=== PATIENT | female | born 1990 | race Caucasian/White ===

== ENCOUNTER 2016-10-25 01:53 | Emergency (ER) ==
[2016-10-25 02:03] VITALS: BP 126/081
[2016-10-25] MEDS ORDERED: XYLOCAINE 1%/EPI 1:100,000 INJ ONE (02:21)
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
[2016-10-25] MEDS ORDERED: NORCO-5 PO ONE (02:30)
[2016-10-25] MEDS ORDERED: MOTRIN PO ONE (02:30)
== END 2016-10-25 02:42 | disposition home or self-care (01) ==
LOC: P.ED 01:53
DX: S01.01XA Laceration without foreign body of scalp, initial encounter (principal); S90.111A Contusion of right great toe without damage to nail, initial encounter; M79.674 Pain in right toe(s); R51 Headache; M79.1 Myalgia; Y04.2XXA Assault by strike against or bumped into by another person, initial encounter
CPT/HCPCS: 99282

== ENCOUNTER 2016-10-27 17:30 | Emergency (ER) ==
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
[2016-10-27] MEDS ORDERED: ZOFRAN ODT PO ONE (19:00)
[2016-10-27] MEDS ORDERED: FIORICET PO ONE (20:21)
[2016-10-27 20:29] VITALS: BP 128/77
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
== END 2016-10-27 20:36 | disposition home or self-care (01) ==
LOC: P.ED 17:30
DX: S06.0X0A Concussion without loss of consciousness, initial encounter (principal); S01.01XD Laceration without foreign body of scalp, subsequent encounter; S00.03XA Contusion of scalp, initial encounter; R42 Dizziness and giddiness; R51 Headache; R11.2 Nausea with vomiting, unspecified; R19.7 Diarrhea, unspecified; J32.9 Chronic sinusitis, unspecified; F17.210 Nicotine dependence, cigarettes, uncomplicated; Z71.6 Tobacco abuse counseling; Y04.0XXA Assault by unarmed brawl or fight, initial encounter
CPT/HCPCS: 70450; 72125; 81025

== ENCOUNTER 2017-07-28 00:02 | Inpatient (IN) ==
[2017-07-28] MEDS ORDERED: PEPCID PO PRN (00:09)
[2017-07-28] MEDS ORDERED: TYLENOL PO PRN (00:09)
[2017-07-28] MEDS ORDERED: STADOL IV PRN (00:09)
[2017-07-28] MEDS ORDERED: PEPCID IV PRN (00:09)
[2017-07-28] MEDS ORDERED: KEFZOL 1 GM/D5W 1 GM/50 ML IVPB IV PRN (00:09)
[2017-07-28] MEDS ORDERED: ZOFRAN IV PRN (00:09)
[2017-07-28] MEDS ORDERED: SODIUM CHLORIDE 0.9% INJ SCH (00:15)
[2017-07-28] MEDS ORDERED: AMPICILLIN 2 GM/NS 2 GM/100 ML IVPB IV ONE (01:00)
[2017-07-28] MEDS: LR 1,000 ML IV SCH ×3 (01:03→09:00)
[2017-07-28 01:59] LABS: MANUAL DIFF NEEDED? NO
[2017-07-28 01:59] LABS: URINE SOURCE VOIDED
[2017-07-28 02:08] LABS: BASO% 0.2 % (0.0-0.8); EOS# 0.12 X1000 (0.0-0.7); EOS% 1.4 % (0.0-10.0); HEMATOCRIT 30.8 % (37.0-47.0); HEMOGLOBIN 10.5 g/dL (12.0-16.0); IMM GRAN# 0.03 X1000 (0.0-0.04); IMM GRAN% 0.3 % (0.0-0.5); LYMPH# 2.46 X1000 (1.2-3.4); LYMPH% 28.2 % (20.5-51.1); MCH 32.2 PG (27-31); MCHC 34.1 g/dL (33-37); MCV 94.5 FL (81-99); MPV 10.6 FL (7.4-10.4); NEUT% 61.9 % (42.2-75.2); PLT 172 X1000 (130-400); RBC 3.26 XMIL (4.2-5.4)
[2017-07-28 02:08] LABS: UR AMPHETAMINES QUAL NONE DETECTED (NONE DETECT); UR BARBITUATES QUAL NONE DETECTED (NONE DETECT); UR BENZODIAZEPIN QUAL NONE DETECTED (NONE DETECT); UR CANNABINOIDS QUAL NONE DETECTED (NONE DETECT); UR COCAINE QUAL NONE DETECTED (NONE DETECT); UR MDMA QUAL NONE DETECTED (NONE DETECT); UR METHADONE QUAL NONE DETECTED (NONE DETECT); UR METHAMPHETAMINE QUAL NONE DETECTED (NONE DETECT); UR OPIATES QUAL NONE DETECTED (NONE DETECT); UR OXYCODONE QUAL NONE DETECTED (NONE DETECT); UR PCP QUAL NONE DETECTED (NONE DETECT); UR TCA QUAL NONE DETECTED (NONE DETECT)
[2017-07-28 02:17] LABS: BILIRUBIN URINE NEGATIVE (NEGATIVE); BLOOD URINE 1+ (NEGATIVE); CLARITY CLEAR (CLEAR); COLOR YELLOW; GLUCOSE URINE NEGATIVE (NEGATIVE); LEUKOCYTES URINE 1+ (NEGATIVE); NITRITE URINE POSITIVE (NEGATIVE); PROTEIN URINE NEGATIVE (NEGATIVE); UROBILINOGEN URINE NORMAL
[2017-07-28] MEDS: AMPICILLIN 1 GM/NS 1 GM/50 ML IVPB IV SCH ×2 (05:16→09:42)
[2017-07-28] MEDS ORDERED: PITOCIN 30 UNITS/LR 30 UNITS/500 ML IV.SOLN IV SCH (06:00)
[2017-07-28] MEDS ORDERED: MINERAL OIL TOP PRN (06:39)
[2017-07-28] MEDS ORDERED: XYLOCAINE-MPF 1% INJ PRN ×2 (06:39→14:00)
[2017-07-28] MEDS ORDERED: FENTANYL-BUPIV-NS 2 MCG-0.1% 200 ML EPIDURAL PRN (07:05)
[2017-07-28] MEDS ORDERED: NAROPIN 0.2% INJ ONE (07:15)
[2017-07-28] MEDS ORDERED: NEO-SYNEPHRINE IV ONE (07:15)
[2017-07-28] MEDS ORDERED: FENTANYL IV ONE (07:15)
[2017-07-28] MEDS ORDERED: BENADRYL PO PRN (14:00)
[2017-07-28] MEDS ORDERED: HYDROXYZINE PO PRN (14:00)
[2017-07-28] MEDS ORDERED: AMBIEN PO PRN (14:00)
[2017-07-28] MEDS ORDERED: BOOSTRIX VACCINE IM ONE (14:00)
[2017-07-28] MEDS ORDERED: PITOCIN IM PRN (14:00)
[2017-07-28] MEDS ORDERED: PITOCIN 20 UNITS/LR 20 UNITS/1,000 ML IV.SOLN IV SCH (14:00)
[2017-07-28] MEDS ORDERED: MINERAL OIL PO PRN (14:00)
[2017-07-28] MEDS ORDERED: PERCOCET-5 PO PRN (14:00)
[2017-07-28] MEDS ORDERED: CYTOTEC PO PRN (14:00)
[2017-07-28] MEDS ORDERED: M-M-R II VACCINE SUBQ ONE (14:00)
[2017-07-28] MEDS ORDERED: PITOCIN 30 UNITS/LR 30 UNITS/500 ML IV.SOLN IV ONE (14:00)
[2017-07-28] MEDS ORDERED: NORCO-5 PO PRN (14:00)
[2017-07-28] MEDS ORDERED: BENADRYL IV PRN (14:00)
[2017-07-28] MEDS ORDERED: PERI MEDS (DERMOPLAST/NUPERCAINAL/TUCKS) MISC PRN (14:00)
[2017-07-28] MEDS ORDERED: HYDROXYZINE IM PRN (14:00)
[2017-07-28] MEDS: MOTRIN PO PRN ×2 (14:40→22:29)
[2017-07-28] MEDS: PERCOCET-10 PO PRN ×2 (17:45→22:29)
[2017-07-28] MEDS: PERICOLACE PO SCH (19:50)
[2017-07-29] MEDS: PERICOLACE PO SCH ×2 (01:09→20:36)
[2017-07-29] MEDS: NORCO-10 PO PRN ×2 (04:04→07:03)
[2017-07-29 06:16] LABS: HEMATOCRIT 29.6 % (37.0-47.0); HEMOGLOBIN 9.8 g/dL (12.0-16.0); MCH 31.5 PG (27-31); MCHC 33.1 g/dL (33-37); MCV 95.2 FL (81-99); MPV 11.2 FL (7.4-10.4); RBC 3.11 XMIL (4.2-5.4)
[2017-07-29] MEDS: MOTRIN PO PRN ×2 (07:03→20:36)
[2017-07-29] MEDS: PRECARE PO SCH (08:49)
[2017-07-29] MEDS: PERCOCET-10 PO PRN ×4 (09:20→21:57)
[2017-07-30] MEDS: MOTRIN PO PRN (07:00)
[2017-07-30 07:30] VITALS: BP 91/57
[2017-07-30] MEDS: NORCO-10 PO PRN (09:46)
[2017-07-30] MEDS: PRECARE PO SCH (09:46)
== END 2017-07-30 10:10 | disposition home or self-care (01) ==
LOC: P.LD 00:02 → P.WC 16:22
PROVIDERS: ADMIT Obstetrics & Gynecology; ATTEND Obstetrics & Gynecology